=== PATIENT | female | born 1965 | race Caucasian/White ===

== ENCOUNTER 2021-08-08 19:04 | Inpatient (IN) | payer BC ==
[2021-08-08] MEDS ORDERED: Acetaminophen 650 MG Suppository PR PRN (20:21)
[2021-08-08] MEDS ORDERED: Ondansetron PF 4 MG/2 ML Vial IVP PRN (20:21)
[2021-08-08] MEDS ORDERED: Acetaminophen 325 MG TAB PO PRN (20:21)
[2021-08-08] MEDS ORDERED: Ondansetron ODT 4 MG TAB PO PRN (20:21)
[2021-08-08] MEDS: Sodium Chloride 0.9% 1,000 ML IV SCH (20:59)
[2021-08-09] MEDS ORDERED: Sodium Chloride 0.9% 1,000 ML IV SCH (02:00)
[2021-08-09 02:21] LABS: #Lymphocytes 0.6 thou/uL (1.20-3.40); #Monocytes 0.1 thou/uL (0.11-0.59); #Neutrophils 8.7 thou/uL (1.40-6.50); %Basophils 0.5 % (0.0-1.0); %Eosinophils 0.1 % (0.0-10.0); %Monocytes 1.4 % (0.0-10.0); Hemoglobin 12.5 g/dL (12.0-16.0); Mean Corpuscular HGB CONC 33.6 g/dL (32.0-36.0); Mean Corpuscular Hemoglobin 32.7 pg (27.0-31.0); Mean Corpuscular Volume 97.5 fL (78.0-98.0); Mean Platelet Volume 6.4 fL (7.4-10.4); Platelet Count 214 thou/uL (130-400); RBC Distribution Width 12.4 % (11.5-14.5); Red Blood Cell (RBC) Count 3.82 mill/uL (4.20-5.40); White Blood Cell (WBC) Count 9.5 thou/uL (4.8-10.8)
[2021-08-09 02:33] LABS: Lactic Acid 2.1 mmol/L (0.5-2.2)
[2021-08-09] MEDS: Sodium Chloride 0.9% 1,000 ML IV SCH ×4 (02:37→17:43)
[2021-08-09 02:38] LABS: ALT (SGPT) 11 U/L (8-55); AST (SGOT) 21 U/L (5-34); Albumin 3.2 g/dL (3.5-5.0); Alkaline Phosphatase 87 U/L (40-110); Anion Gap 12 mmol/L (10-20); BUN (Urea Nitrogen) 9 mg/dL (9.8-20.1); Bilirubin, Total 0.4 mg/dL (0.2-1.2); Calc. Creatinine Clearance 55 mL/min (70-130); Calcium 8.4 mg/dL (7.8-10.44); Carbon Dioxide 21 mmol/L (22-29); Chloride 105 mmol/L (98-107); Globulin 2.8 g/dL (2.4-3.5); Glucose 143 mg/dL (70-105); Potassium 3.9 mmol/L (3.5-5.1); Sodium 134 mmol/L (136-145)
[2021-08-09] MEDS ORDERED: DOPamine 400 MG/D5W 250 ML 250 ML ONE (02:53)
[2021-08-09] MEDS ORDERED: DOPamine 400 MG/D5W 250 ML 250 ML IVPB SCH ×2 (03:15→11:57)
[2021-08-09] MEDS ORDERED: Piperacillin/Tazobactam 3.375 GM in Sodium Chloride 0.9% 100 ML IVPB SCH (03:15)
[2021-08-09] MEDS: VANCOMYCIN 1.25 GM/250 ML BAG 1.25 GM in Premix Bag 1 BAG IVPB SCH (03:29)
[2021-08-09 04:42] LABS: Troponin I Less than 0.010 ng/mL (< 0.028)
[2021-08-09 05:35] LABS: Lactic Acid 1.7 mmol/L (0.5-2.2)
[2021-08-09 06:01] LABS: Bilirubin Negative (Negative); Blood, Urine Trace (Negative); Clarity Clear (Clear); Glucose, Urine (Dipstick) Normal (Negative); Ketone, Urine Negative (Negative); Leukocyte 75 Leu/uL (Negative); Nitrite Negative (Negative); Protein, Urine (Dipstick) Negative (Neg-Trace); RBC/HPF 0-3 HPF (0-3); Specific Gravity, Urine 1.008 (1.002-1.036); Squamous Epithelial 0-3 HPF (0-3); Urobilinogen Normal mg/dL (Less than 2); pH, Urine 5.5 (5.0-9.0)
[2021-08-09 06:04] LABS: Bacteria/HPF 1+ HPF (None Seen)
[2021-08-09 06:08] LABS: Urine Culture Reflex Yes Yes
[2021-08-09] MEDS: Piperacillin/Tazobactam 3.375 GM in Sodium Chloride 0.9% 100 ML IVPB SCH ×2 (11:41→18:36)
[2021-08-09] MEDS: Enoxaparin Sodium 40 MG/0.4 ML SYRINGE SC SCH (11:43)
[2021-08-09] MEDS: HYDROcodone/Acetaminophen 5/325 mg Tablet PO PRN (19:43)
[2021-08-09 20:13] LABS: Amphetamine Not Detected (NotDetected); Barbiturates Screen Not Detected (NotDetected); Benzodiazepine Screen Not Detected (NotDetected); Cocaine Metabolite Screen Not Detected (NotDetected); Methadone Not Detected (NotDetected); Methamphetamine Not Detected (NotDetected); Opiate Screen Detected (NotDetected); Oxycodone Screen Not Detected (NotDetected); Phencyclidine (PCP) Not Detected (NotDetected); THC/Cannabinoid Screen Detected (NotDetected); Tricyclic Screen Not Detected (NotDetected)
[2021-08-09] MEDS ORDERED: Polyethylene Glycol 3350 17 GM Packet PO PRN (20:24)
[2021-08-09] MEDS ORDERED: cefTRIAXone\\ROCEPHIN 1 GM in Sodium Chloride 0.9% 100 ML IVPB SCH (21:00)
[2021-08-10] MEDS: Sodium Chloride 0.9% 1,000 ML IV SCH ×3 (00:45→13:40)
[2021-08-10] MEDS: Piperacillin/Tazobactam 3.375 GM in Sodium Chloride 0.9% 100 ML IVPB SCH ×3 (00:45→17:45)
[2021-08-10] MEDS: VANCOMYCIN 1.25 GM/250 ML BAG 1.25 GM in Premix Bag 1 BAG IVPB SCH (04:00)
[2021-08-10 04:10] LABS: #Lymphocytes 1.1 thou/uL (1.20-3.40); #Monocytes 0.9 thou/uL (0.11-0.59); #Neutrophils 11.2 thou/uL (1.40-6.50); %Basophils 0.1 % (0.0-1.0); %Lymphocytes 8.4 % (21.0-51.0); %Neutrophils 84.6 % (42.0-75.0); Hemoglobin 12.6 g/dL (12.0-16.0); Mean Corpuscular HGB CONC 32.8 g/dL (32.0-36.0); Mean Corpuscular Hemoglobin 31.9 pg (27.0-31.0); Mean Corpuscular Volume 97.3 fL (78.0-98.0); Mean Platelet Volume 6.6 fL (7.4-10.4); Platelet Count 251 thou/uL (130-400); RBC Distribution Width 12.6 % (11.5-14.5); Red Blood Cell (RBC) Count 3.94 mill/uL (4.20-5.40); White Blood Cell (WBC) Count 13.2 thou/uL (4.8-10.8)
[2021-08-10 04:29] LABS: Anion Gap 10 mmol/L (10-20); BUN (Urea Nitrogen) 10 mg/dL (9.8-20.1); Calc. Creatinine Clearance 74 mL/min (70-130); Calcium 8.4 mg/dL (7.8-10.44); Carbon Dioxide 24 mmol/L (22-29); Chloride 109 mmol/L (98-107); Glucose 101 mg/dL (70-105); Potassium 3.9 mmol/L (3.5-5.1); Sodium 139 mmol/L (136-145)
[2021-08-10] MEDS: HYDROcodone/Acetaminophen 5/325 mg Tablet PO PRN ×3 (06:10→21:56)
[2021-08-10] MEDS: Enoxaparin Sodium 40 MG/0.4 ML SYRINGE SC SCH (09:43)
[2021-08-10] MEDS ORDERED: DOPamine 400 MG/D5W 250 ML 250 ML IVPB SCH (13:23)
[2021-08-10] MEDS ORDERED: Potassium Chloride 20 MEQ TAB PO SCH (13:30)
[2021-08-10] MEDS ORDERED: Furosemide 20 MG/2 ML VIAL SLOW IVP SCH (13:30)
[2021-08-10] MEDS: Nicotine 21 MG PATCH TD SCH (17:45)
[2021-08-11] MEDS: Piperacillin/Tazobactam 3.375 GM in Sodium Chloride 0.9% 100 ML IVPB SCH ×3 (00:05→18:01)
[2021-08-11] MEDS: HYDROcodone/Acetaminophen 5/325 mg Tablet PO PRN ×3 (04:15→18:36)
[2021-08-11 04:22] LABS: #Lymphocytes 1.6 thou/uL (1.20-3.40); #Monocytes 0.6 thou/uL (0.11-0.59); #Neutrophils 5.7 thou/uL (1.40-6.50); %Basophils 0.5 % (0.0-1.0); %Eosinophils 0.6 % (0.0-10.0); %Lymphocytes 19.8 % (21.0-51.0); %Neutrophils 71.1 % (42.0-75.0); Hemoglobin 13.3 g/dL (12.0-16.0); Mean Corpuscular HGB CONC 33.9 g/dL (32.0-36.0); Mean Corpuscular Hemoglobin 32.9 pg (27.0-31.0); Platelet Count 255 thou/uL (130-400); RBC Distribution Width 12.8 % (11.5-14.5); Red Blood Cell (RBC) Count 4.05 mill/uL (4.20-5.40)
[2021-08-11 04:35] LABS: Vancomycin, Trough 5.8 ug/mL
[2021-08-11 04:37] LABS: Anion Gap 10 mmol/L (10-20); BUN (Urea Nitrogen) 9 mg/dL (9.8-20.1); Calc. Creatinine Clearance 65 mL/min (70-130); Calcium 8.4 mg/dL (7.8-10.44); Carbon Dioxide 28 mmol/L (22-29); Chloride 104 mmol/L (98-107); Glucose 77 mg/dL (70-105); Potassium 3.3 mmol/L (3.5-5.1); Sodium 139 mmol/L (136-145)
[2021-08-11] MEDS: VANCOMYCIN 1.25 GM/250 ML BAG 1.25 GM in Premix Bag 1 BAG IVPB SCH (05:14)
[2021-08-11] MEDS: Vancomycin 1 GM in Premix Bag 1 BAG IVPB SCH ×2 (05:20→15:57)
[2021-08-11] MEDS: Enoxaparin Sodium 40 MG/0.4 ML SYRINGE SC SCH (08:26)
[2021-08-11] MEDS ORDERED: Iopamidol-370 76% 500 ML 1 ML ONE (09:56)
[2021-08-11] MEDS ORDERED: Potassium Chloride 20 MEQ TAB PO SCH (13:30)
[2021-08-11] MEDS ORDERED: Sodium Chloride 0.9% 500 ML IV SCH (14:45)
[2021-08-11] MEDS: Nicotine 21 MG PATCH TD SCH (15:57)
[2021-08-11] MEDS: Mometasone 200 MCG/Formoterol 5 MCG 120 PUFF INHALER INH SCH (19:04)
[2021-08-12] MEDS: Piperacillin/Tazobactam 3.375 GM in Sodium Chloride 0.9% 100 ML IVPB SCH ×2 (00:40→10:18)
[2021-08-12 04:57] LABS: Anion Gap 12 mmol/L (10-20); BUN (Urea Nitrogen) 7 mg/dL (9.8-20.1); Calc. Creatinine Clearance 68 mL/min (70-130); Calcium 8.3 mg/dL (7.8-10.44); Carbon Dioxide 25 mmol/L (22-29); Chloride 106 mmol/L (98-107); Glucose 80 mg/dL (70-105); Potassium 3.5 mmol/L (3.5-5.1); Sodium 139 mmol/L (136-145)
[2021-08-12] MEDS: Vancomycin 1 GM in Premix Bag 1 BAG IVPB SCH (05:19)
[2021-08-12] MEDS: Enoxaparin Sodium 30 MG/0.3 ML SYRINGE SC SCH (10:18)
[2021-08-12] MEDS: predniSONE 20 MG TAB PO SCH (10:18)
[2021-08-12] MEDS: Potassium Chloride 20 MEQ TAB PO SCH (10:18)
[2021-08-12] MEDS: Mometasone 200 MCG/Formoterol 5 MCG 120 PUFF INHALER INH SCH ×2 (10:38→19:19)
[2021-08-12] MEDS ORDERED: Senokot S 8.6-50 MG TAB PO SCH ×2 (10:45→21:00)
[2021-08-12] MEDS ORDERED: Magnesium Citrate 300 ML BOT PO SCH (10:45)
[2021-08-12] MEDS ORDERED: Senokot S 8.6-50 MG TAB PO PRN (11:23)
[2021-08-12] MEDS: Nicotine 21 MG PATCH TD SCH (18:04)
[2021-08-13] MEDS: Mometasone 200 MCG/Formoterol 5 MCG 120 PUFF INHALER INH SCH ×2 (07:30→18:54)
[2021-08-13] MEDS: predniSONE 20 MG TAB PO SCH (09:30)
[2021-08-13] MEDS: PARoxetine 20 MG TAB PO SCH (09:30)
[2021-08-13] MEDS: Potassium Chloride 20 MEQ TAB PO SCH (09:30)
[2021-08-13] MEDS: Enoxaparin Sodium 30 MG/0.3 ML SYRINGE SC SCH (09:30)
[2021-08-13] MEDS: Nicotine 21 MG PATCH TD SCH (16:33)
[2021-08-14] MEDS: Mometasone 200 MCG/Formoterol 5 MCG 120 PUFF INHALER INH SCH (07:47)
[2021-08-14] MEDS: Enoxaparin Sodium 30 MG/0.3 ML SYRINGE SC SCH (09:28)
[2021-08-14] MEDS: predniSONE 20 MG TAB PO SCH (09:29)
[2021-08-14] MEDS: PARoxetine 20 MG TAB PO SCH (09:29)
[2021-08-14] MEDS: Potassium Chloride 20 MEQ TAB PO SCH (09:29)
[2021-08-14] MEDS: Nicotine 21 MG PATCH TD SCH (16:38)
[2021-08-14 16:46] VITALS: BP 140/72; TEMP 98.2
[2021-08-14 17:54] VITALS: BMI 17.0
== END 2021-08-14 17:56 | disposition home or self-care (01) | DRG 871 ==
LOC: IMCU/EMU 19:23 → 2NO 08-11 20:57
PROVIDERS: ADMIT Family Medicine; ATTEND Family Medicine
DX: A41.9 Sepsis, unspecified organism (principal); R65.21 Severe sepsis with septic shock; J96.21 Acute and chronic respiratory failure with hypoxia; E43 Unspecified severe protein-calorie malnutrition; N10 Acute pyelonephritis; Z68.1 Body mass index [BMI] 19.9 or less, adult; I42.8 Other cardiomyopathies; R64 Cachexia; E87.70 Fluid overload, unspecified; J43.2 Centrilobular emphysema; F17.210 Nicotine dependence, cigarettes, uncomplicated; R00.1 Bradycardia, unspecified; F41.9 Anxiety disorder, unspecified; E87.6 Hypokalemia; K59.01 Slow transit constipation; Z88.2 Allergy status to sulfonamides; Z86.711 Personal history of pulmonary embolism
CPT/HCPCS: 36415; 71045; 71275; 80048; 80202; 80306; 81001; 82103; 83605; 83735; 83880; 84145; 84484; 85025; 87040; 87086; 93005; 93010; 93306; 93970; 94640; J1265; J1650; J1940; J2543; J3370; J3490; J7030; J7050; J7512; J7620; Q9967

== ENCOUNTER 2022-02-12 07:42 | Inpatient (IN) | payer BC ==
[2022-02-12] MEDS ORDERED: Acetaminophen 500 MG TAB ONE (08:28)
[2022-02-12] MEDS ORDERED: Ketorolac Tromethamine 30 MG/ML VIAL ONE (08:55)
[2022-02-12] MEDS ORDERED: Metoclopramide 10 MG/10 ML UDCUP ONE (08:55)
[2022-02-12] MEDS ORDERED: Metoclopramide HCl 10 MG/2 ML VIAL ONE (08:56)
[2022-02-12 09:20] LABS: Hemoglobin 14.3 g/dL (12.0-16.0); Mean Corpuscular HGB CONC 33.3 g/dL (32.0-36.0); Mean Corpuscular Hemoglobin 31.6 pg (27.0-31.0); Mean Corpuscular Volume 94.8 fl (78.0-98.0); Mean Platelet Volume 6.1 fL (7.4-10.4); Platelet Count 277 10x3/uL (130-400); RBC Distribution Width 12.2 % (11.5-14.5); Red Blood Cell (RBC) Count 4.52 mill/uL (4.20-5.40); White Blood Cell (WBC) Count 24.2 10x3/uL (4.8-10.8)
[2022-02-12 09:26] LABS: ALT (SGPT) 14 U/L (8-55); AST (SGOT) 15 U/L (5-34); Albumin 4.6 g/dL (3.5-5.0); Alkaline Phosphatase 94 U/L (40-110); Anion Gap 16 mmol/L (10-20); BUN (Urea Nitrogen) 8 mg/dL (9.8-20.1); Calc. Creatinine Clearance 0 mL/min (70-130); Calcium 10.1 mg/dL (7.8-10.44); Carbon Dioxide 24 mmol/L (22-29); Chloride 100 mmol/L (98-107); Estimated GFR 87; Glucose 91 mg/dL (70-105); Potassium 3.9 mmol/L (3.5-5.1); Protein, Total 7.6 g/dL (6.0-8.3); Sodium 136 mmol/L (136-145)
[2022-02-12 09:58] LABS: Band 10 % (5-11); Lymphocytes 8 % (21-51); MDiff Complete? YES; Monocytes 2 % (0-10); Neutrophil 80 % (42-75); Platelet Morphology Comment Appears Adequate; RBC Morphology Normal
[2022-02-12] MEDS ORDERED: cefTRIAXone\\ROCEPHIN 2 GM VIAL ONE (10:37)
[2022-02-12 11:32] LABS: Bilirubin Negative (Negative); Blood, Urine Trace (Negative); Clarity Turbid (Clear); Glucose, Urine (Dipstick) Normal (Negative); Ketone, Urine 40 mg/dL (Negative); Leukocyte 250 Leu/uL (Negative); Nitrite 2+ (Negative); Protein, Urine (Dipstick) 30 mg/dL (Neg-Trace); RBC/HPF 0-3 HPF (0-3); Specific Gravity, Urine 1.021 (1.002-1.036); Urobilinogen Normal mg/dL (Less than 2)
[2022-02-12 11:39] LABS: Bacteria/HPF 3+ HPF (None Seen)
[2022-02-12] MEDS ORDERED: Azithromycin 500 MG VIAL ONE (11:54)
[2022-02-12 12:03] LABS: SARS-CoV-2 NAA Rapid Test Not Detected (NotDetected)
[2022-02-12] MEDS ORDERED: Iopamidol-370 76% 500 ML 1 ML ONE (14:11)
[2022-02-12] MEDS ORDERED: Senokot S 8.6-50 MG TAB PO PRN (14:27)
[2022-02-12] MEDS ORDERED: Acetaminophen 325 MG TAB PO PRN (14:27)
[2022-02-12] MEDS ORDERED: Enoxaparin Sodium 40 MG/0.4 ML SYRINGE SC SCH (14:30)
[2022-02-12 14:32] LABS: Troponin I Less than 0.010 ng/mL (< 0.028)
[2022-02-12] MEDS ORDERED: Albuterol Sulfate 2.5 mg/0.5 ml Neb NEB PRN (14:35)
[2022-02-12 16:29] VITALS: BMI 19.7
[2022-02-12 16:51] LABS: Troponin I Less than 0.010 ng/mL (< 0.028)
[2022-02-12] MEDS: HYDROcodone/Acetaminophen 5/325 mg Tablet PO PRN (16:54)
[2022-02-12] MEDS: Lactated Ringer's 1,000 ML IV SCH (16:59)
[2022-02-12] MEDS: Mometasone 200 MCG/Formoterol 5 MCG 120 PUFF INHALER INH SCH (18:54)
[2022-02-12] MEDS: Famotidine 20 MG TAB PO SCH (20:05)
[2022-02-13 05:10] LABS: #Basophils 0.1 thou/uL (0.0-0.2); #Eosinphils 0.2 thou/uL (0.0-0.7); #Lymphocytes 1.2 thou/uL (1.20-3.40); #Monocytes 1.1 thou/uL (0.11-0.59); #Neutrophils 14.1 thou/uL (1.40-6.50); %Basophils 0.4 % (0.0-1.0); %Eosinophils 1.2 % (0.0-10.0); %Lymphocytes 7.1 % (21.0-51.0); %Monocytes 6.4 % (0.0-10.0); Hemoglobin 11.8 g/dL (12.0-16.0); Mean Corpuscular HGB CONC 33.1 g/dL (32.0-36.0); Mean Corpuscular Hemoglobin 31.6 pg (27.0-31.0); Mean Corpuscular Volume 95.5 fl (78.0-98.0); Mean Platelet Volume 6.5 fL (7.4-10.4); Platelet Count 213 10x3/uL (130-400); Red Blood Cell (RBC) Count 3.72 mill/uL (4.20-5.40); White Blood Cell (WBC) Count 16.6 10x3/uL (4.8-10.8)
[2022-02-13 05:53] LABS: Anion Gap 12 mmol/L (10-20); BUN (Urea Nitrogen) 5 mg/dL (9.8-20.1); Calc. Creatinine Clearance 79 mL/min (70-130); Carbon Dioxide 22 mmol/L (22-29); Chloride 105 mmol/L (98-107); Estimated GFR 103; Glucose 89 mg/dL (70-105); Potassium 3.6 mmol/L (3.5-5.1); Sodium 135 mmol/L (136-145)
[2022-02-13] MEDS: HYDROcodone/Acetaminophen 5/325 mg Tablet PO PRN ×3 (05:54→17:53)
[2022-02-13] MEDS: Lactated Ringer's 1,000 ML IV SCH (05:59)
[2022-02-13] MEDS: Mometasone 200 MCG/Formoterol 5 MCG 120 PUFF INHALER INH SCH ×2 (07:53→19:06)
[2022-02-13] MEDS: Famotidine 20 MG TAB PO SCH ×2 (08:56→20:19)
[2022-02-13] MEDS: PARoxetine 20 MG TAB PO SCH (08:56)
[2022-02-13] MEDS ORDERED: FLU VACC QS2022-23(6MOS UP)/PF 60 MCG/0.5 ML SYRINGE IM ONE (09:00)
[2022-02-13] MEDS ORDERED: Prevnar 13-Val Conj/PF 0.5 ML SYRINGE IM ONE (09:00)
[2022-02-13] MEDS: cefTRIAXone\\ROCEPHIN 2 GM in Sodium Chloride 0.9% 100 ML IVPB SCH (11:24)
[2022-02-14] MEDS: HYDROcodone/Acetaminophen 5/325 mg Tablet PO PRN ×3 (04:27→20:03)
[2022-02-14] MEDS: Mometasone 200 MCG/Formoterol 5 MCG 120 PUFF INHALER INH SCH ×2 (08:01→18:17)
[2022-02-14] MEDS: PARoxetine 20 MG TAB PO SCH (08:32)
[2022-02-14] MEDS: Famotidine 20 MG TAB PO SCH ×2 (08:32→20:03)
[2022-02-14] MEDS: cefTRIAXone\\ROCEPHIN 2 GM in Sodium Chloride 0.9% 100 ML IVPB SCH (09:53)
[2022-02-15 07:11] LABS: #Eosinphils 0.2 thou/uL (0.0-0.7); #Lymphocytes 1.2 thou/uL (1.20-3.40); #Monocytes 0.9 thou/uL (0.11-0.59); #Neutrophils 6.8 thou/uL (1.40-6.50); %Basophils 0.4 % (0.0-1.0); %Eosinophils 2.3 % (0.0-10.0); %Lymphocytes 13.2 % (21.0-51.0); %Monocytes 9.3 % (0.0-10.0); %Neutrophils 74.7 % (42.0-75.0); Hemoglobin 11.8 g/dL (12.0-16.0); Mean Corpuscular HGB CONC 33.2 g/dL (32.0-36.0); Mean Corpuscular Hemoglobin 31.4 pg (27.0-31.0); Mean Corpuscular Volume 94.5 fl (78.0-98.0); Mean Platelet Volume 6.5 fL (7.4-10.4); Platelet Count 250 10x3/uL (130-400); RBC Distribution Width 12.1 % (11.5-14.5); Red Blood Cell (RBC) Count 3.77 mill/uL (4.20-5.40); White Blood Cell (WBC) Count 9.1 10x3/uL (4.8-10.8)
[2022-02-15] MEDS: Mometasone 200 MCG/Formoterol 5 MCG 120 PUFF INHALER INH SCH (07:20)
[2022-02-15 08:01] VITALS: BP 112/71; TEMP 97.9
[2022-02-15] MEDS: Famotidine 20 MG TAB PO SCH (08:09)
[2022-02-15] MEDS: PARoxetine 20 MG TAB PO SCH (08:09)
[2022-02-15] MEDS: cefTRIAXone\\ROCEPHIN 2 GM in Sodium Chloride 0.9% 100 ML IVPB SCH (10:40)
== END 2022-02-15 12:54 | disposition home or self-care (01) | DRG 871 ==
LOC: ERS 07:42 → 2NO 15:19 → T4-B 02-13 15:17
PROVIDERS: ADMIT Student in an Organized Health Care Education/Training Program; ATTEND Family Medicine
DX: A41.51 Sepsis due to Escherichia coli [E. coli] (principal); J96.21 Acute and chronic respiratory failure with hypoxia; N39.0 Urinary tract infection, site not specified; I50.32 Chronic diastolic (congestive) heart failure; Z20.822 Contact with and (suspected) exposure to COVID-19; J43.9 Emphysema, unspecified; F32.A Depression, unspecified; Z88.2 Allergy status to sulfonamides; Z79.51 Long term (current) use of inhaled steroids; Z79.52 Long term (current) use of systemic steroids; Z79.899 Other long term (current) drug therapy; Z99.81 Dependence on supplemental oxygen; Z87.891 Personal history of nicotine dependence
CPT/HCPCS: 36415; 36416; 70450; 71045; 71275; 80048; 80053; 81003; 81015; 83605; 83880; 84484; 85025; 85379; 87040; 87077; 87086; 87186; 90471; 90686; 93005; 94640; 96361; 96365; 96367; 96375; G0008; J0456; J0696; J1650; J1885; J2765; J3490; J7120; J7611; Q9967